=== PATIENT | male | born 1975 | race Caucasian/White ===

== ENCOUNTER 2018-06-08 14:09 | Outpatient (REF) | payer MEDICAID, SELFPAY ==
[2018-06-08 22:17] LABS: Abs Immature Grans 0.03 k/cumm (0.0-0.09); Absolute Basophil Count 0.04 k/cumm (0.0-0.2); Absolute Eosinophil Count 0.12 k/cumm (0.0-0.7); Absolute Neutrophil Count 7.24 k/cumm (1.2-6.7); Basophils % 0.4; Eosinophils % 1.3; HCT 44.3 % (40.0-50.0); HGB 15.1 g/dL (13.5-17.5); Immature Grans % 0.3; Lymphocytes % 14.7; Mean Corp. HGB Concentration 34.1 g/dL (32.0-36.0); Mean Corpuscular Hemoglobin 30.7 pg (27.0-33.0); Mean Platelet Volume 9.9 fL (8.0-11.0); Monocytes % 7.3; Platelet Count 301 x1000/uL (130-400); RBC 4.92 m/cumm (4.50-6.00); RBC Distribution Width 13.7 % (11.8-14.1); White Blood Cell Count 9.53 k/cumm (4.4-10.8)
[2018-06-08 22:24] LABS: ALT 34 U/L (12-78); AST 27 U/L (15-37); Albumin 4.4 g/dL (3.4-5.0); Alkaline Phosphatase 137 U/L (46-116); Anion Gap 10.8 mmol/L (3-11); BUN 8 mg/dL (7-18); Bilirubin, Total 0.6 mg/dL (0.2-1.0); CO2 28.2 mmol/L (21.0-32.0); CREATININE 0.88 mg/dL (0.70-1.30); Calcium 9.1 mg/dL (8.5-10.1); Chloride 99 mmol/L (98-107); Cholesterol 238 mg/dL (50-200); Glucose 95 mg/dL (70-100); HDL Cholesterol 42 mg/dL (40-60); LDL CHOLESTEROL 167 mg/dL (<100); Potassium 4.2 mmol/L (3.5-5.1); Sodium 138 mmol/L (136-145); TSH (W/Ref FT4) 1.11 uIU/mL (0.358-3.74); Total Protein 7.9 g/dL (6.4-8.2); Triglyceride 113 mg/dL (30-150)
[2018-06-10 09:57] LABS: Hepatitis C Ab w Rflx HCV PCR Reactive (NEGAT)
== END 2018-06-08 14:29 ==
LOC: NCHCN 14:09
PROVIDERS: Visit Provider Nurse Practitioner Family
DX: I10 Essential (primary) hypertension (principal); B19.20 Unspecified viral hepatitis C without hepatic coma; F32.9 Major depressive disorder, single episode, unspecified; Z00.00 Encounter for general adult medical examination without abnormal findings; Z11.59 Encounter for screening for other viral diseases
CPT/HCPCS: 80053; 80061; 83721; 86803; 84443; 85025; 87522

== ENCOUNTER 2018-09-19 12:57 | Outpatient (REF) | payer MEDICAID, SELFPAY ==
[2018-09-21 10:40] LABS: HBs Antibody, Quant 549.3 mIU/mL; Hepatitis B Surface Ab Positive
[2018-09-21 12:45] LABS: Hepatitis A IgM Ab Negative (Negative)
[2018-09-21 18:54] LABS: HCV Genotype 1a (Undetected)
== END 2018-09-19 13:17 ==
LOC: NCHCN 12:57
PROVIDERS: PCP Family Medicine; Visit Provider Family Medicine
DX: B19.20 Unspecified viral hepatitis C without hepatic coma (principal)
CPT/HCPCS: 86706; 86709; 87521

== ENCOUNTER 2021-08-18 11:02 | Emergency (ER) | payer MEDICAID, SELFPAY ==
[2021-08-18 11:16] VITALS: BP 158/105; PULSE 113; RESP 16; TEMP 36.4; O2SAT 95
--- NOTE | 2021-08-18 11:29 | ED.GENADUL_ITS ---
Discharge Plan Disposition Patient Disposition: AGAINST MEDICAL ADVICE Condition: Stable Discharge Details Clinical Impression: Pneumonia, Hypomagnesemia Primary Care Provider: Gómez Hou ED Provider: Isabel Rob Home Meds and New Rx's Prescriptions: Continued ibuprofen 200 MG tablet 600 mg PO Q6H PRN buprenorphine-naloxone [Suboxone] 12-3 mg film 1 film sublingual DAILY Label Comments: PLACE ONE FILM UNDER THE TONGUE EVERY DAY Discharge Instructions Additional Instructions: You are needing to leave prior to completion of your work-up here. As we discussed, there is some abnormalities in your chest x-ray for which a CT scan was recommended to further evaluate. As you have a new onset of cough, this may be a bacterial pneumonia and will begin you on antibiotics. This has been sent to your pharmacy of choice in [place]. Please take the antibiotics described, even if symptoms improve please take the entire course. This antibiotic can cause some sensitivity in the sun so please try to cover or wear sunscreen as much as possible. Please encourage hydration. In regard to how shake you were earlier, some of this could be associated with anxiety as well as you continue to cut down on alcohol. Please continue with these efforts. The alcohol intake is also likely associated with your elevated liver enzymes as you had already known about. I would like for you to follow-up with your primary care as soon as possible, please call today to schedule follow-up appointment for this week. As we discussed, you may return anytime for continued management and work-up of your current symptoms. Please return immediately with any new or worsening symptoms. Referrals: Gómez Hou [Primary Care Provider] - Discharge Data Discharge Date/Time-TO BE ENTERED AT DEPARTURE: 08/18/21 14:30 Medical Decision Making Patient is a 46-year-old male, accompanied by significant other, with chief complaint of shortness of breath and cough. Patient reports that this has been intermittent depending on where he is staying. Attributes it to staying with significant other as her home has been found to have mold. Patient is an active smoker, has been cutting back on alcohol. 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 States that shortness of breath is not impeding his ability to work. Has been coughing, none productive. States that yesterday he vomited x2 and states that it was discolored. This too he is attributing to his intermittent stay at a long stay motel with significant other. They are currently trying to seek housing elsewhere of their presenting symptoms seem to correlate with this. He denies any chest pain. Feels that he may have developed from site of rash, similar to significant other who primary concern at this time is a rash attributed to where they are living. On exam, patient appears anxious and tremulous. He has been cutting back on alcohol, I am particularly concerned for alcohol withdrawal. Will give dose of benzodiazepine. Patient is tachycardic with a heart rate of 113, otherwise normal cardiac auscultation. Lungs are clear in all mims. Patient does have clubbing of the nails. He did point out 1 area on the MCP joint of the left hand concerning for possible rash which was not objectively noted. Patient does appear dehydrated on oral mucosa. Differential at this time is quite broad. Patient does seem to have a few different things going on. I am concerned for potential COVID-19, patient is not vaccinated. Also considered pneumonia associated with possible exposure. Will obtain chest x-ray. Is primarily in appearance is that of somebody who is having some alcohol withdrawal, again we will try to treat the symptoms. Patient does not have any wheezing. He denies history of COPD. MEDIASTINUM: Normal.? HEART: Normal. PULMONARY VASCULATURE: Normal. LUNGS: Faint nodular densities are seen in the lungs; predominantly, in the left upper lobe in the right mid lung.? No focal consolidating infiltrate is seen. PLEURAL SPACE: No pleural effusion or pneumothorax. BONE:Within normal limits for the patient's age.? OTHER FINDINGS:Normal.? IMPRESSION: Several faint pulmonary nodular densities are present.? A CT scan of the chest is recommended for further evaluation.? This may be obtained without IV contrast.? An infectious or inflammatory process should be considered.? Neoplasm cannot be entirely excluded.? Please correlate clinically. Labs reviewed. WBC of 15.6. Mag low at 1.4, will replanish. LFT elevated, patient had previously stated these were bselin elevated more recently associated with his ETOH intake. Patient, his signficant other and I had long discussion regarding his findings. He needs to pick up man his child and cannot wait for CT. He is unable to stay for continued workup and is levaing against medical advise. He is aware that this may include lifethreatening pathology. He will return to the ER for conitnued evaluation or seek care with his PCP as soon as possible. As he has had worsenin g symptoms, possible infilttrate and leukocytosis, will treat for bacterial pneumonia with abx. Patient is aware that he may return at any time. He demonstrates decision making acapcity and has good social support. All of his questions and concerns were addressed. HPI General Date/Time Provider Initiated Documentation: 08/18/21 11:29 . Limitations to Documentation: no limitations . Information obtained by: patient, family and RN notes reviewed . History of Present Illness 46 year old M presents to the emergency department with the chief complaint of shortness of breath, cough, described as moderate, and is localized to the chest. Patient reports no radiation. Patient started experiencing this day(s) and it has been intermittent. No relieving factors improve symptom(s), No exacerbating factors reported . Patient notes cough, diaphoresis, fever/chills, loss of appetite, rash, shortness of breath and other (shaky); denies chest pain and nausea/vomiting. Patient did receive the following treatments prior to arrival, none Related Data Home Medications Medication Instructions Recorded Confirmed ibuprofen 200 mg tablet 600 mg PO Q6H PRN 05/11/14 08/18/21 buprenorphine 12 mg-naloxone 3 mg 1 film sublingual DAILY 08/18/21 08/18/21 sublingual film (Suboxone) Allergies Allergy/AdvReac Type Severity Reaction Status Date / Time No Known Allergies Allergy Unverified 08/18/21 14:08 General Stated Complaint: GenMedical MILADY: 4 Review of Systems Constitutional Constitutional: Reports as per HPI Eyes Eyes: Denies change in vision ENT Ears, Nose, Mouth, and Throat: Denies dizziness Cardiovascular Cardiovascular: Reports as per HPI Respiratory Respiratory: Reports as per HPI, Denies pain on inspiration and Denies pain with cough Gastrointestinal Gastrointestinal: Reports as per HPI Genitourinary Genitourinary: Denies system reviewed and no additional complaints, except as documented (denies change in urinary habits) Musculoskeletal Musculoskeletal: Reports as per HPI and Denies back pain Integumentary/Breasts Skin/Breast: Reports as per HPI Neurologic Neurologic: Reports as per HPI and Denies dizziness PFSH All Active Problems (Updated 08/18/21 @ 14:19 by GABY Gonzalez) Pneumonia (Acute) Hypomagnesemia (Acute) Medical History (Updated 08/18/21 @ 14:19 by GABY Gonzalez) Acute epididymitis Alcohol abuse Fracture of wrist Fracture, ankle Nicotine addiction Right inguinal hernia Surgical History (Updated 05/11/14 @ 10:49 by Reyna Dixon MD) ORIF Ankle ORIF wrist Social History Smoking/Tobacco Use Status: Current every day Tobacco Type: cigarettes Years smoked: 30 Smoking risk assessment performed?: Yes Alcohol Intake: current Alcohol Intake frequency: 3 or more drinks per day Alcohol type: beer Drug use: Occasionally Substance use type: marijuana Do you feel safe at home: Yes Do you feel safe in your relationship?: Yes Exam Const General: cooperative, no acute distress, well developed, anxious and ill appearing acutely and chronically Nutritional Appearance: average body habitus and well nourished Orientation: alert, awake and oriented x3 HENMT Head: normal to inspection Ears: hearing grossly normal bilaterally, external ears normal and TM's normal bilaterally Mouth: moist mucous membranes Throat: posterior oropharynx normal Eyes General: appearance normal, both eyes and all related structures Neck Neck: normal visual inspection, full ROM and no lymphadenopathy Chest Chest: normal inspection of the chest, normal palpation of entire chest wall and no crepitus Resp Effort & Inspection: normal respiratory effort, able to speak in complete sentences and no respiratory distress Auscultation: clear to auscultation bilaterally, no rales, no rhonchi and no wheezes Cardio Rate: tachycardic Rhythm: regular rhythm Heart Sounds: S1 normal and S2 normal GI Inspection: normal to inspection, no edema and non-distended Palpation: soft, no hepatosplenomegaly, not firm, no guarding, not rigid and nontender Auscultation: normal bowel sounds Back/Spine/Pelvis Back: no CVA tenderness Thoracic/Lumbar Spine: thoracic and lumbar spine normal to inspection Skin General skin exam: no rashes or lesions noted Trauma: no lacerations or abrasions Neuro General: patient alert, patient awake and patient oriented x3 Cognition: normal cognition Speech: speech normal Gait: normal gait Motor: muscle tone normal throughout and tremor (bilateral hands) Extrem General: normal to inspection, capillary refill normal, no pedal edema, no calf tenderness and normal gait Psych Appearance: grossly normal and well kempt Mental Status: mental status grossly normal Speech and Movement: speech and movement normal Course Vital Signs Vital signs: Vital Signs Temperature 36.4 C L 08/18/21 11:16 Pulse 113 H 08/18/21 11:16 Respiratory Rate 16 08/18/21 11:16 Blood Pressure 158/105 H 08/18/21 11:16 Pulse Oximetry 95 08/18/21 11:16 Temperature 36.4 C L 08/18/21 11:16 Temperature Source Temporal Artery Scan 08/18/21 11:16 Pulse 113 H 08/18/21 11:16 Respiratory Rate 16 08/18/21 11:16 Blood Pressure 158/105 H 08/18/21 11:16 Blood Pressure Position Sitting 08/18/21 11:16 Pulse Oximetry 95 08/18/21 11:16 Oxygen Delivery Method Room Air 08/18/21 11:16 Oxygen Flow Rate 0 08/18/21 11:16 Pain Level 8 08/18/21 11:16
--- NOTE | 2021-08-18 11:45 | RT.EKG_ITS ---
APPROVED REPORT Exam: Resting ECG Reason for Exam: SOB Patient Location: E HR:95 bpm ECG Measurements Heart Rate 95 AXIS HI 128 P 69 QRSd 82 QRS 72 QT 349 T 61 QTc 439 Conclusion Sinus rhythm...normal P axis, V-rate 60- 99 Probable left atrial enlargement...P >50mS, <-0.10mV V1 ST elev, probable normal early repol pattern...ST elevation, age<55 no STEMI, non-diagnostic EKG I have reviewed and interpreted ECG and agree with software generated interpretation.
[2021-08-18 12:25] LABS: Abs Immature Grans 0.07 10^3/uL (0.0-0.06); Absolute Basophil Count 0.05 10^3/uL (0.0-0.2); Basophils % 0.3; Eosinophils % 0.1; HCT 42.3 % (40.0-50.0); HGB 14.9 g/dL (13.5-17.5); Immature Grans % 0.4; Lymphocytes % 2.8; MCHC 35.2 % (32.0-36.0); MCV 94 fL (80-95); MPV 9.4 fL (8.0-11.0); Monocytes % 8.5; Neutrophils % 87.9; Platelet Count 182 10^3/uL (130-400); RBC 4.52 10^6/uL (4.36-5.78); RDW 11.7 % (11.8-14.1); RDW-SD 40.3 fL; WBC 15.96 10^3/uL (4.4-10.8)
[2021-08-18 12:27] LABS: Absolute Eosinophil Count 0.02 10^3/uL (0.0-0.7); Absolute Lymphocyte Count 0.45 10^3/uL (1.2-3.4); Absolute Monocyte Count 1.36 10^3/uL (0.1-0.8); Absolute Neutrophil Count 14.03 10^3/uL (1.2-6.7)
[2021-08-18] MEDS: LORazepam 2 MG/ML VIAL 1 MG IVP (12:37)
[2021-08-18] MEDS: Normal Saline Flush 10 ML SYR IVP (12:37)
[2021-08-18 12:43] LABS: ALT 115 U/L (16-63); AST 126 U/L (15-37); Albumin 3.8 g/dL (3.4-5.0); Alkaline Phosphatase 139 U/L (46-116); Anion Gap 11.1 mmol/L (3-11); BUN 1 mg/dL (7-18); Bilirubin, Total 0.7 mg/dL (0.2-1.0); CO2 24.9 mmol/L (21.0-32.0); CREATININE 0.8 mg/dL (0.70-1.30); Calcium 8.2 mg/dL (8.5-10.1); Chloride 97 mmol/L (98-107); Glucose 146 mg/dL (74-106); Magnesium 1.4 mg/dL (1.8-2.4); Potassium 4.1 mmol/L (3.5-5.1); Sodium 133 mmol/L (136-145); Total Protein 7.6 g/dL (6.4-8.2); Troponin I < 50 ng/L (<or=60)
[2021-08-18 12:58] LABS: COVID-19 PCR Negative (Negative); Influenza A PCR Negative (Negative); Influenza B PCR Negative (Negative); RSV PCR Negative (Negative)
--- NOTE | 2021-08-18 13:42 | DI.RAD_ITS ---
Exam(s) XR PORTABLE CHEST AP EXAM: XR PORTABLE CHEST AP CLINICAL HISTORY: SOB TECHNIQUE: 2D digital imaging was performed of the chest. Two images were obtained. AP views were obtained. COMPARISON: No exams were available for comparison FINDINGS: MEDIASTINUM: Normal. HEART: Normal. PULMONARY VASCULATURE: Normal. LUNGS: Faint nodular densities are seen in the lungs; predominantly, in the left upper lobe in the ri ght mid lung. No focal consolidating infiltrate is seen. PLEURAL SPACE: No pleural effusion or pneumothorax. BONE:Within normal limits for the patient's age. OTHER FINDINGS:Normal. IMPRESSION: Several faint pulmonary nodular densities are present. A CT scan of the chest is recommended for fur ther evaluation. This may be obtained without IV contrast. An infectious or inflammatory process sh ould be considered. Neoplasm cannot be entirely excluded. Please correlate clinically. DATA REPOSITORY: RADIATION DOSE DELIVERED:
== END 2021-08-18 14:30 | disposition left against medical advice (07) ==
PROVIDERS: Emergency Provider Physician Assistant; PCP Family Medicine
DX: J18.9 Pneumonia, unspecified organism (principal); E83.42 Hypomagnesemia; Z53.29 Procedure and treatment not carried out because of patient's decision for other reasons; R91.8 Other nonspecific abnormal finding of lung field; F17.210 Nicotine dependence, cigarettes, uncomplicated; R00.0 Tachycardia, unspecified; R06.02 Shortness of breath
CPT/HCPCS: 36415; 80053; 87637; 93005; 96374; 99284; 71045; 83735; 84484; 85025; 93010; J2060

== ENCOUNTER 2022-01-15 21:30 | Outpatient (REF) | payer MEDICAID, SELFPAY ==
[2022-01-15 22:23] LABS: Abs Immature Grans 0.01 10^3/uL (0.0-0.06); Absolute Basophil Count 0.08 10^3/uL (0.0-0.2); Absolute Eosinophil Count 0.08 10^3/uL (0.0-0.7); Absolute Monocyte Count 0.77 10^3/uL (0.1-0.8); Absolute Neutrophil Count 5.36 10^3/uL (1.2-6.7); HCT 40.6 % (40.0-50.0); HGB 14.4 g/dL (13.5-17.5); Immature Grans % 0.1; Lymphocytes % 21.3; MCH 34.3 pg (27.0-33.0); MCHC 35.5 % (32.0-36.0); MCV 97 fL (80-95); MPV 9.8 fL (8.0-11.0); Monocytes % 9.6; Platelet Count 221 10^3/uL (130-400); RDW 11.9 % (11.8-14.1); RDW-SD 42.1 fL
[2022-01-15 22:33] LABS: ALT 138 U/L (16-63); AST 189 U/L (15-37); Albumin 4.6 g/dL (3.4-5.0); Alkaline Phosphatase 154 U/L (46-116); Anion Gap 6.9 mmol/L (3-11); BUN 5 mg/dL (7-18); Bilirubin, Total 0.4 mg/dL (0.2-1.0); CO2 31.1 mmol/L (21.0-32.0); CREATININE 0.7 mg/dL (0.70-1.30); Calcium 9.4 mg/dL (8.5-10.1); Chloride 99 mmol/L (98-107); Glucose 79 mg/dL (74-106); Potassium 5.1 mmol/L (3.5-5.1); Sodium 137 mmol/L (136-145); Total Protein 8.4 g/dL (6.4-8.2)
[2022-01-15 22:35] LABS: Prothrombin Time 9.6 sec (9.3-11.0)
[2022-01-15 22:40] LABS: GGT 904 U/L (15-85)
[2022-01-17 23:45] LABS: HCV Genotype 1a (Undetected)
[2022-01-19 10:29] LABS: HBs Antibody, Quant 40.3 mIU/mL (See Note); Hepatitis B Surface Ab Positive (See Note)
[2022-01-19 10:39] LABS: Hepatitis B Surface Ag Negative (Negative)
[2022-01-19 11:08] LABS: HIV-1/2 Ag & Ab Screen Negative (Negative)
[2022-01-19 11:18] LABS: Hep B Core Antibody Negative (Negative)
[2022-01-19 11:43] LABS: Hepatitis C Ab w Rflx HCV PCR Reactive (Negative)
[2022-01-20 15:54] LABS: HCV RNA Detection Quantitative 2300000 IU/mL (Undetected); HCV RNA Qualitative Detected (Undetected)
== END 2022-01-15 21:31 | disposition home or self-care (01) ==
LOC: LBN 21:30
PROVIDERS: PCP Family Medicine
DX: K73.9 Chronic hepatitis, unspecified (principal); Z11.4 Encounter for screening for human immunodeficiency virus [HIV]; Z11.59 Encounter for screening for other viral diseases
CPT/HCPCS: 80053; 86704; 86706; 86803; 87340; 87389; 87522; 82977; 85025; 85610; 87521